=== PATIENT | female | born 1975 | race Caucasian/White ===

== ENCOUNTER 2021-02-10 15:12 | Observation (INO) ==
[2021-02-10] MEDS ORDERED: ORPHENADRINE 60 MG/2 ML VIAL IM STA (17:15)
[2021-02-10] MEDS ORDERED: KETOROLAC 30 MG/1 ML VIAL IV STA (17:15)
[2021-02-10] MEDS ORDERED: HYDROmorphone 2 MG/1 ML VIAL IV STA (17:56)
[2021-02-10] MEDS ORDERED: ONDANSETRON 4 MG/2 ML VIAL IV STA (17:56)
[2021-02-10] MEDS ORDERED: HYDROmorphone 2 MG/1 ML VIAL ONE (17:57)
[2021-02-10 18:16] LABS: Basophils % 0.3 % (0.0-0.8); Eosinophils % 0.2 % (0.00-10.9); Hematocrit 42.8 VOL% (35.7-47.0); Hemoglobin 13.9 GM/DL (12.0-16.0); Immature Granulocytes % 0.4 %; Immature Granulocytes Absolute 0.05 #; Lymphocytes # 1.4 10*3/uL (1.4-4.0); Mean Corpuscular HGB Conc 32.5 GM/DL (32-36); Mean Corpuscular Volume 96.6 FL (87-102); Mean Platelet Volume 9.9 FL (9.6-12.0); Monocytes % 5.8 % (1.7-12.7); Neutrophils % 82.3 % (38.7-73.9); Platelet Count 333 T/CUMM (130-400); Red Blood Count 4.43 MC/CUMM (3.8-5.5); Red Cell Distribution Width 12.2 % (9.3-17.3); White Blood Count 12.5 T/CUMM (4-12)
[2021-02-10 18:41] LABS: Alanine Aminotransferase 23 U/L (13-56); Albumin 4.3 G/DL (3.4-5.0); Alkaline Phosphatase 43 U/L (45-117); Aspartate Amino Transferase 26 U/L (0-37); Blood Urea Nitrogen 23 MG/DL (7-18); Carbon Dioxide 27 MMOL/L (21-32); Estimated Glom Filtration Rate 91 ML/MIN; Glucose 84 MG/DL (74-106); Osmolality,Calculated 279.5 MOS/KG (273-304); Potassium 3.6 MMOL/L (3.5-5.1); Sodium 139 MMOL/L (136-145); Total Protein 7.8 G/DL (6.4-8.2)
[2021-02-10] MEDS ORDERED: ACETAMINOPHEN 325 MG TABLET PO PRN (19:33)
[2021-02-10] MEDS ORDERED: oxyCODONE/ACETAMINOPHEN 5-325 MG TABLET PO PRN (19:33)
[2021-02-10] MEDS ORDERED: ONDANSETRON 4 MG/2 ML VIAL IV PRN (19:33)
[2021-02-10] MEDS ORDERED: KETOROLAC 30 MG/1 ML VIAL IV PRN (19:38)
[2021-02-10] MEDS: HYDROmorphone 2 MG/1 ML VIAL IV PRN (23:23)
[2021-02-11] MEDS: HYDROmorphone 2 MG/1 ML VIAL IV PRN ×2 (04:45→10:26)
[2021-02-11 06:26] LABS: Basophils % 0.4 % (0.0-0.8); Eosinophils # 0.2 10*3/uL (0.0-0.87); Eosinophils % 2.4 % (0.00-10.9); Hematocrit 37.3 VOL% (35.7-47.0); Hemoglobin 12.2 GM/DL (12.0-16.0); Immature Granulocytes % 0.4 %; Immature Granulocytes Absolute 0.03 #; Lymphocytes # 2.2 10*3/uL (1.4-4.0); Lymphocytes % 31.5 % (21.3-54.2); Mean Corpuscular HGB Conc 32.7 GM/DL (32-36); Mean Corpuscular Volume 96.9 FL (87-102); Mean Platelet Volume 9.3 FL (9.6-12.0); Monocytes % 10.5 % (1.7-12.7); Neutrophils % 54.8 % (38.7-73.9); Platelet Count 255 T/CUMM (130-400); Red Blood Count 3.85 MC/CUMM (3.8-5.5); Red Cell Distribution Width 12.6 % (9.3-17.3); White Blood Count 7.1 T/CUMM (4-12)
[2021-02-11 11:38] VITALS: BP 96/57
== END 2021-02-11 13:12 | disposition home or self-care (01) ==
LOC: N.ED 15:12 → N.EDINP 15:12 → N.3E 20:19
PROVIDERS: ADMIT Surgery; ATTEND Surgery